=== PATIENT | male | born 1965 | race Caucasian/White ===

== ENCOUNTER 2022-10-11 13:29 | Emergency (ER) | payer MEDICARE, MEDICAID, SELFPAY ==
[2022-10-11 13:43] VITALS: BP 148/111; PULSE 100; RESP 16; TEMP 36.4; O2SAT 97; BMI 29.8
--- NOTE | 2022-10-11 13:55 | ED_ITS ---
HPI - General Adult General Time Seen by Provider: 13:55 Date Seen: 10/11/22 Chief complaint: Ear/Nose/Throat Problem Stated complaint: ENT and congestion Time Seen by Provider: 10/11/22 13:42 Source: patient and RN notes reviewed Mode of arrival: ambulatory Limitations: no limitations History of Present Illness HPI narrative: Patient is a 57-year-old male coming in stating he really does not feel good. He admits his symptoms have been well over a month. He notes sore throat, pain with swallowing, chest discomfort, some nausea with vomiting. 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 He reportedly is on a blood pressure medicine for hypertension but does not remember what that is. Thinks about a year ago he had colonoscopy with a doctor at [place]. He states they did not do an EGD, did see that doctor about 2 months ago and was having some symptoms with a stomach then. [place] and does not identify primary care doctor. He does like the person he has seen at [place] and would go back to them. No fevers or chills. 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 He tells me multiple times he just does not feel well. Patient quit smoking about 15 years ago, denies any alcohol use. Note in nursing triage she was complaining of increased diaphoresis, headaches, pins and needle sensation in his ears mouth and throat and upper chest for 1-2 months. He was having a sense of sores in his mouth as well. Related Data Home Medications Medication Instructions Recorded Confirmed Unobtainable 10/11/22 10/11/22 Allergies Allergy/AdvReac Type Severity Reaction Status Date / Time bees Allergy Intermediate Hives Uncoded 10/11/22 13:42 Review of Systems Status of ROS: Reports: 6 or more systems reviewed and unremarkable except as noted in History and below [facility] Social History Smoking Status: Former smoker How often do you have a drink containing alcohol: never AUDIT-C Alcohol total score: 0 Non-prescribed substance use: denies use service: No Exam Const: Vital Signs, click to edit/add: Vital Signs - 24 hr 10/11/22 13:43 Temperature 97.6 F Pulse Rate [Right Pulse Oximeter] 100 Respiratory Rate 16 Blood Pressure [Ri ght Upper Arm] 148/111 H Pulse Oximetry 97 Oxygen Delivery Me thod Room Air Documenting provider has reviewed patient's vital signs: yes Common normals: no apparent distress, average body habitus, oriented x3, no limitations, healthy appearing and alert General appearance: cooperative, comfortable, well kempt, well developed and anxious HENMT: Common normals: normocephalic, head/scalp atraumatic, hearing grossly normal bilaterally, external ears normal, EAC's normal, TM's normal bilaterally, external nose normal, nasal mucous membranes and turbinates normal, moist oral mucous membranes, oropharynx normal, dentition normal (Does have upper denture) and gingiva normal (See no lesions or ulcers.) Head and scalp: normocephalic and atraumatic Nose: external nose normal and nasal mucous membranes and turbinates normal External ear: external ears normal External auditory canal: EAC's normal Tympanic membrane: TM's normal bilaterally Eye: Common normals: PERRL, EOMs intact bilaterally, conjunctivae normal and no scleral icterus Conjunctiva: conjunctiva(e) normal Pupil: PERRL Neck & C-Spine: Common normals: full ROM, no lymphadenopathy, supple, no meningeal signs, no JVD and thyroid normal Thyroid: thyroid normal Chest: Common normals: inspection of chest normal and palpation of chest normal Resp: Common normals: normal respiratory effort, no retractions, no use of accessory muscles and clear to auscultation bilaterally Effort & inspection: able to speak in complete sentences Auscultation: clear to auscultation bilaterally Cardio: Common normals: no JVD, regular rate, regular rhythm, S1 normal heart sound, S2 normal heart sound, no gallops, no clicks and no murmurs Rate: regular rate Rhythm: regular rhythm Heart sounds: S1 normal and S2 normal GI: Common normals: Normal to inspection, nondistended, normoactive bowel sounds present, soft to palpation, non-tender, no hepatosplenomegaly and no masses Palpation: soft and no hepatosplenomegaly Extremity: Common normals: normal to inspection and full ROM Other: Has very notable right arm tremor that seems to have a mild resting component that worsens with activity or intention. Neuro: Common normals: oriented x3 Sensorium/orientation: alert Meningeal signs: no meningeal signs Psych: Appearance: well kempt Course Course Hospital Course: Will do chest x-ray, obtain EKG in full complement of labs on this patient. Symptoms have been present for weeks if not months, have tried to relate to patient with his multitude of symptoms and organ systems that are bothering him, and a bit reluctant to give have him think we will find an identifiable diagnosis. Have tried at this point to let him know that we will do a comprehensive look at labs, consider acute emergent things such as cardiac ischemia, obtained portable chest x-ray just to ensure that we see no acute pathology, but likely that he will need further outpatient follow-up. I will do I can not identify it diagnosis for him but I am doubtful that I will have definitive diagnosis based on his initial presentation. Reevaluation(s) Time of Reevaluation #1: 15:35 Reevaluation #1: Reviewed with patient my preliminary reading of his portable chest x-ray with no acute findings. He understands if the radiologist does over-read it with any change, I will contact him. Likewise, I will contact him if the TSH does come back abnormal but would likely be tomorrow. Otherwise, the only abnormality is a mildly low sodium which probably is coming from his blood pressure medicine. I reviewed with him that diuretics and lisinopril or common antihypertensives that are used for treatment of blood pressure. He was able to remember that he is on losartan. This certainly could be causative etiology of mild hyponatremia. Reviewed with him that this is not enough to give him concerning symptoms however. I do want him rechecked in clinic and have the hyponatremia followed. He likewise will need further workup and follow-up for his concerns. He asked if this is COVID. Reviewed with him that symptoms stemming from 1-2 months are not COVID acutely but could be long-term symptoms or long haul symptoms. He is advised he is not tested for COVID today. His symptoms are not acute and thus COVID was not tested. He is concerned about long haul symptoms, could consider antibody testing through clinic but this is not something we do in the ED. Vital Signs Vital signs: Initial Vital Signs Temperature 97.6 F 10/11/22 13:43 Temperature Source Temporal Artery Scan 10/11/22 13:43 Pulse Rate 100 10/11/22 13:43 Pulse Rhythm Regular 10/11/22 13:43 Respiratory Rate 16 10/11/22 13:43 Blood Pressure 148/111 H 10/11/22 13:43 Blood Pressure Mean 123 H 10/11/22 13:43 Blood Pressure Position Sitting 10/11/22 13:43 Pulse Oximetry 97 10/11/22 13:43 Oxygen Delivery Method Room Air 10/11/22 13:43 Vital Signs Temperature 97.6 F 10/11/22 13:43 Pulse Rate 100 10/11/22 13:43 Respiratory Rate 16 10/11/22 13:43 Blood Pressure 148/111 H 10/11/22 13:43 Pulse Oximetry 97 10/11/22 13:43 Oxygen Delivery Method Room Air 10/11/22 13:43 Temperature 97.6 F 10/11/22 13:43 Pulse Rate 100 10/11/22 13:43 Respiratory Rate 16 10/11/22 13:43 Blood Pressure 148/111 H 10/11/22 13:43 Pulse Oximetry 97 10/11/22 13:43 Oxygen Delivery Method Room Air 10/11/22 13:43 Medical Decision Making Lab Data Lab results reviewed: Yes I reviewed the patient's lab results Labs: Lab Results 10/11/22 10/11/22 Range/Units 14:06 14:20 WBC 7.02 (4.50-11.00) K/uL RBC 4.57 (4.30-5.90) m/uL Hgb 14.0 (13.5-17.5) gm/dL Hct 40.4 (37.0-53.0) % MCV 88 (80-100) fL MCH 31 (26-34) pg MCHC 35 (32-36) gm/dL RDW Coeff of Laura 12.4 (11.5-15.5) % Plt Count 377 (140-440) K/uL Neut % (Auto) 56.7 (42.0-72.0) % Lymph % (Auto) 33.3 (20-44) % Cass % (Auto) 8.0 (0.0-11.0) % Eos % (Auto) 1.0 (0.0-7.0) % Baso % (Auto) 0.9 (0.0-3.0) % Neut # (Auto) 3.98 (1.7-7.0) K/uL Lymph # (Auto) 2.34 (0.90-2.90) K/uL Cass # (Auto) 0.60 (0.00-0.90) K/UL Eos # (Auto) 0.07 (0.00-0.50) K/uL Baso # (Auto) 0.06 (0.00-0.30) K/uL Abs Immat Gran (auto) 0.01 (0.00-0.30) K/uL Imm/Tot Granulo (auto) 0.1 % Sodium 131 L (135-149) mmol/L Potassium 4.2 (3.6-5.1) mmol/L Chloride 96 (96-114) mmol/L Carbon Dioxide 25 (20-32) mmol/L Anion Gap 10 (7-15) mEq/L BUN 9 (7-30) mg/dL Creatinine 1.0 (0.5-1.5) mg/dL Estimated Creat Clear 89.46 Estimated GFR 88 ml/min Glucose 98 (60-115) mg/dL Lactate 0.9 (0.5-1.9) mmol/L Magnesium 1.7 (1.5-2.6) mg/dL Total Bilirubin 0.7 (0.1-1.5) mg/dL AST 34 (12-35) U/L ALT 42 (4-50) U/L Alkaline Phosphatase 54 (40-150) U/L C-Reactive Protein < 0.5 L (0.5-1.0) mg/dL NT-Pro-B Natriuret Pep < 20 pg/mL Total Protein 7.8 (6.0-8.3) g/dL Albumin 4.6 (3.3-5.0) g/dL TSH 1.830 (0.270-4.200) uIU/mL POC Troponin I 0.02 (0.01-0.04) ng/ml Imaging Data Chest x-ray: Attestation: I have reviewed the pertinent imaging results. My impression: No acute pathology on my preliminary review. Radiologist's impression: Patient: ALAN BRODERICK Facility:?[facility] Patient ID:?[id number] Site Patient ID:?[id number]. Site :?[id number] Study:?XRay Chest PCXR-10/11/2022 2:55:42 PM Ordering Physician:Сергей Wells Final Report: INDICATION: Chest discomfort. TECHNIQUE: Chest 1 views. COMPARISON: None. FINDINGS: Cardiovascular and mediastinum: Heart size and vasculature are normal in caliber and appearance. Lungs and pleural spaces: Lungs are clear. No sign of infiltrate or mass. No sign of pleural effusion. No pneumothorax. Bones and soft tissues: No significant findings. IMPRESSION: No acute or significant findings. Dictated by Jarocho Vela MD @ 10/11/2022 4:20:08 PM (Electronic Signature) ECG Data Attestation: I personally reviewed and interpreted this ECG as follows: (Normal sinus rhythm, 80 beats per minute. No ischemia. QT corrected 431 milliseconds.) Prior ECG tracings: not available for review Discharge Plan Discharge Clinical Impression: Hyponatremia, Chest discomfort, Sore throat Patient Disposition: Home, Self-Care Condition: Stable Instructions: Chest Pain (DC), Hyponatremia (ED) Additional Instructions: You do need to follow up in clinic within the next 1-2 weeks, the sodium should be rechecked. It is very likely that your mild hyponatremia might be coming from medication use for your hypertension treatment. Sometimes reflux symptoms can present with chest symptoms and sore throat. Could consider an over the counter trial of omeprazole/Prilosec 20 mg daily for the next 2 weeks and see if it does help some of these symptoms. If some of these symptoms resolve, could be possibly GERD. May need to consider EGD and other further workup is guided by your outpatient follow-up visit with the primary care provider. I will certainly contact you if there is any concerning change in the over read of your chest x-ray by Radiology or if the pending thyroid lab test comes back abnormal. Activity Level: Activity as Tolerated Discharge Diet: Heart Healthy (2 gm sodium, low fat) Prescriptions: No Action Unobtainable Stand Alone Forms: [employer] Info Instructions
--- NOTE | 2022-10-11 14:07 | CRLHL7_ITS ---
For Patients: As a result of the Cures Act, medical imaging exams and procedure reports are released immediately into your electronic medical record. You may view this report before your referring provider. If you have questions, please contact your health care provider. INDICATION: Chest discomfort. TECHNIQUE: Chest 1 views. COMPARISON: None. FINDINGS: Cardiovascular and mediastinum: Heart size and vasculature are normal in caliber and appearance. Lungs and pleural spaces: Lungs are clear. No sign of infiltrate or mass. No sign of pleural effusion. No pneumothorax. Bones and soft tissues: No significant findings. IMPRESSION: No acute or significant findings. Dictated by Jarocho Vela MD @ 10/11/2022 4:20:08 PM (Electronically Signed)
[2022-10-11 14:27] LABS: Lactate* 0.9 mmol/L (0.5-1.9)
[2022-10-11 14:36] LABS: Troponin, Point-of-Care* 0.02 ng/ml (0.01-0.04)
[2022-10-11 14:44] LABS: Basophils Absolute Auto 0.06 K/uL (0.00-0.30); Basophils Percent Auto 0.9 % (0.0-3.0); Eosinophils Absolute Auto 0.07 K/uL (0.00-0.50); Hematocrit 40.4 % (37.0-53.0); Immature Granulocytes Abs Auto 0.01 K/uL (0.00-0.30); Immature Granulocytes Pct Auto 0.1 %; Lymphocytes Absolute Auto 2.34 K/uL (0.90-2.90); Lymphocytes Percent Auto 33.3 % (20-44); Mean Corpuscular HGB Conc 35 gm/dL (32-36); Mean Corpuscular Hemoglobin 31 pg (26-34); Mean Corpuscular Volume 88 fL (80-100); Neutrophils Absolute Auto 3.98 K/uL (1.7-7.0); Neutrophils Percent Auto 56.7 % (42.0-72.0); Platelet Count* 377 K/uL (140-440); RDW Coefficient of Variation % 12.4 % (11.5-15.5); Red Blood Count 4.57 m/uL (4.30-5.90); White Blood Count* 7.02 K/uL (4.50-11.00)
[2022-10-11 15:03] LABS: Slide Review Reflex No
[2022-10-11 15:06] LABS: Albumin* 4.6 g/dL (3.3-5.0); Chloride* 96 mmol/L (96-114); Potassium* 4.2 mmol/L (3.6-5.1); Sodium* 131 mmol/L (135-149)
[2022-10-11 15:08] LABS: Anion Gap 10 mEq/L (7-15); Bilirubin Total* 0.7 mg/dL (0.1-1.5); Carbon Dioxide* 25 mmol/L (20-32); Est. Creatinine Clearance* 89.46; Estimated Glomerular Filt Rate 88 ml/min
[2022-10-11 15:09] LABS: Alanine Aminotransferase* 42 U/L (4-50); Alkaline Phosphatase* 54 U/L (40-150); Aspartate Amino Transferase* 34 U/L (12-35); Blood Urea Nitrogen* 9 mg/dL (7-30); Total Protein* 7.8 g/dL (6.0-8.3)
[2022-10-11 15:10] LABS: Glucose* 98 mg/dL (60-115); Magnesium* 1.7 mg/dL (1.5-2.6)
[2022-10-11 15:19] LABS: C Reactive Protein* < 0.5 mg/dL (0.5-1.0); NT Pro B Type NatriureticPept* < 20 pg/mL
[2022-10-14 14:03] LABS: Calcium* 9.3 mg/dL (8.4-10.6)
== END 2022-10-11 15:49 | disposition home or self-care (01) ==
PROVIDERS: Emergency Provider Family Medicine
DX: R07.9 Chest pain, unspecified (principal); E87.6 Hypokalemia; J02.9 Acute pharyngitis, unspecified
CPT/HCPCS: 36415; 71045; 80053; 83605; 83735; 83880; 84443; 84484; 85025; 86140; 93005; 99284; 99285